=== PATIENT | female | born 1980 | race Caucasian/White ===

== ENCOUNTER 2021-06-28 09:27 | Emergency (ER) | payer OTHER ==
[~2021-06-28] VITALS: Ht 170.2 cm; Wt 74.0 kg
[2021-06-28 09:27] VITALS: BP 152/94
--- NOTE | 2021-06-28 09:52 | PHYS DOC ---
Adult General Chief Complaint Chief Complaint: ANKLE PROBLEM HPI HPI Patient is a 40-year-old female presenting for left ankle injury. Reports injury onset was yesterday evening when she was walking the dog. She states she was walking and suffered an inversion type left ankle sprain. She appropriately provided supportive care that included compression, elevation, icing and she took x2 extra strength Tylenol yesterday with improvement in pain. Ongoing symptoms and inability to fully bear weight's concern patient prompting her to come in for evaluation. She otherwise has no concerning medical issues, takes no medications on a daily basis Review of Systems Review of Systems Fourteen body systems of review of systems have been reviewed. See HPI for pertinent positives and negative responses, other simpson all other systems are negative, non-pertinent or non-contributory Allergies Allergies Allergies Coded Allergies Type Severity Reaction Last Updated Verified Penicillins Allergy Unknown 06/28/21 Yes Physical Exam Physical Exam Constitutional: Well developed, well nourished, no acute distress, non-toxic appearance. HENT: Normocephalic, atraumatic, bilateral external ears normal, oropharynx moist, no oral exudates, nose normal. Eyes: PERRLA, EOMI, conjunctiva normal, no discharge. Neck: Normal range of motion, no tenderness, supple, no stridor. Cardiovascular: Heart rate regular per monitor Lungs & Thorax: No respiratory distress or accessory muscle use, bilateral chest rise Abdomen: Abdomen soft, non-tender, bowel sounds present in all quadrants, no guarding or rebound, nonacute abdomen. Skin: Warm, dry, no erythema, no rash. Back: No tenderness, no CVA tenderness. Extremities: No cyanosis, no clubbing, ROM intact, patient presents with compressed Jung wrap to left ankle. She has focal pain to palpation over left lateral malleolus and over ATF ligaments. Comprehensive formal examination of left foot, ankle, tatum/lower leg and left knee unremarkable Neurologic: Alert and oriented X 3, grossly normal motor & sensory function, no focal deficits noted. Psychologic: Affect normal, judgement normal, mood normal. Current Patient Data Vital Signs Vital Signs Date Time Temp Pulse Resp B/P (MAP) Pulse Ox O2 Delivery O2 Flow Rate FiO2 06/28/21 09:27 104 16 152/94 (113) 97 Room Air Vital Signs Date Time Temp Pulse Resp B/P (MAP) Pulse Ox O2 Delivery O2 Flow Rate FiO2 06/28/21 09:27 104 152/94 (113) 97 06/28/21 09:27 16 Room Air EKG EKG [] Radiology/Procedures Radiology/Procedures INDICATION: Reason: inversion injury, lateral mal pain / Spl. Instructions: / History: COMPARISON: None. IMPRESSION: Left ankle: 3 views obtained. No evidence of dislocation. Nondisplaced acute appearing medial malleolus fracture with overlying soft tissue swelling. Joint effusion is identified within the tibiotalar joint. Electronically signed by: Lennox De Paz MD (06/28/2021 10:12 AM) DESKTOP- [id number] Heart Score C/O Chest Pain: No Risk Factors: Risk Factors: DM, Current or recent (<one month) smoker, HTN, HLP, family history of CAD, obesity. Risk Scores: Risk Factors: DM, Current or recent (<one month) smoker, HTN, HLP, family history of CAD, obesity. Course & Med Decision Making Course & Med Decision Making ABCs unremarkable HPI physical exam and comprehensive ER work-up nonconcerning for any emergent or surgical issues I disclosed radiographic findings concerning for small distal fibular fracture. No immediate indication for further diagnostic work-up or emergent orthopedic consultation for surgical intervention Splint applied and reevaluated by myself to be in satisfactory position with intact motor or sensory neuro function. Pain control given after extensive risk benefits of excepting narcotic pain medications had with patient and spouse at bedside Close outpatient PCP and employment training specialist advised with resources given. Strict return precautions were discussed with good understanding by patient and at bedside, all questions and concerns addressed prior to ER departure Dragon Disclaimer Dragon Disclaimer This electronic medical record was generated, in whole or in part, using a voice recognition dictation system. Departure Departure: Impression: Primary Impression: Closed fibular fracture Disposition: HOME / SELF CARE / HOMELESS Condition: STABLE Referrals: PCP,NO (PCP) Additional Instructions: You were seen for a fracture or broken bone. We spoke with the orthopedic doctors who need to see you in the orthopedic clinic. I want you to see Dr. Go Jeffrey who is a foot and ankle doctor. Please contact him first thing on Tuesday at [phone]. His office is located at [facility] [address], [address] [place] [address] in the same building you were seen for in the ER. If you were provided a splint use this as directed. You should not use the affected body part until you follow up with orthopedics. Keep the area clean, dry, and avoid getting it wet. You should use ice, NSAIDs and/or Tylenol for pain, and elevation to help with swelling and pain. Return to the ED if you develop worsening pain, numbness, tingling, weakness, fever, redness, or any other new or concerning symptoms. Scripts Crutch (CRUTCH) 1 Each Each PAIR MC UD for ankle fracture, #1 DISPENSE: 1 PAIR OF CRUTCHES. PATIENT TO USE INSTRUCTED BY PROVIDER. Prov: NICOLAS LARSEN DO 06/28/21 NICOLAS LARSEN DO Jun 28, 2021 09:52
--- NOTE | 2021-06-28 10:15 | RAD ---
INDICATION: Reason: inversion injury, lateral mal pain / Spl. Instructions: / History: COMPARISON: None. IMPRESSION: Left ankle: 3 views obtained. No evidence of dislocation. Nondisplaced acute appearing medial malleol us fracture with overlying soft tissue swelling. Joint effusion is identified within the tibiotalar j oint. Electronically signed by: Lennox De Paz MD (06/28/2021 10:12 AM) [id number]
[2021-06-28] MEDS ORDERED: CRUT1EAC3 MC (10:42)
== END 2021-06-28 10:42 | disposition home or self-care (01) ==
LOC: ER 09:27
DX: S82.832A Other fracture of upper and lower end of left fibula, initial encounter for closed fracture (principal); Z88.0 Allergy status to penicillin; X50.9XXA Other and unspecified overexertion or strenuous movements or postures, initial encounter; Y93.K1 Activity, walking an animal; Y92.89 Other specified places as the place of occurrence of the external cause; Y99.8 Other external cause status
CPT/HCPCS: 29515; 73610; 99283

== ENCOUNTER 2021-11-11 21:30 | Emergency (ER) | payer OTHER ==
[~2021-11-11] VITALS: Ht 170.2 cm; Wt 74.0 kg
[~2021-11-11 21:30] MED LIST: CRUT1EAC3 MC
--- NOTE | 2021-11-11 22:11 | PHYS DOC ---
Past History Past Surgical History: No Surgical History Alcohol Use: Rarely General Adult EDM: Chief Complaint: BACK INJURY HPI: HPI: ".. I am having a lot of back pain.... I have had back pain before but this is worse than usual.... It seems to run cleared behind my left leg.... I do not think it is anything there really injured..... I have seen a chiropractor in the past and that has helped.... But tonight it is not let me sleep..." Patient is a 41 year old female who presents with above hx and complaints lumbar sacral pain and sciatica on the left. Straight leg lift exacerbates the pain on the left. Patient denies any trauma or history of improper lifting. Patient has had sciatica complaints last few years. Patient denies any problems with urination or defecation. Patient denies any history of IV drug use. Patient denies any history of immunosuppression. Patient denies any history of cancer. Pain is most present and the paralumbar area obvious spasm and sciatic nerve is tender to palpation clear into the gluteal muscle. No recent travel. No specific ill contacts. Up-to-date with vaccinations. dependent. Review of Systems: Review of Systems: Constitutional: Denies fever or chills Eyes: Denies change in visual acuity HENT: Denies nasal congestion or sore throat Respiratory: Denies cough or shortness of breath Cardiovascular: Denies chest pain or edema GI: Denies abdominal pain, nausea, vomiting, bloody stools or diarrhea : Denies dysuria Musculoskeletal: Complains of back pain and sciatica Integument: Denies rash Neurologic: Denies headache, focal weakness or sensory changes Endocrine: Denies polyuria or polydipsia Lymphatic: Denies swollen glands Psychiatric: Denies depression or anxiety Family History: Family History: Noncontributory to presentation Current Medications: Current Meds: See nursing for home meds Allergies: Allergies: Allergies Coded Allergies Type Severity Reaction Last Updated Verified Penicillins Allergy Unknown 06/28/21 Yes Physical Exam: PE: Constitutional: Moderate acute distress, non-toxic appearance. [] HENT: Normocephalic, atraumatic, bilateral external ears normal, oropharynx moist, no oral exudates, nose normal. [] Eyes: PERRLA, EOMI, conjunctiva normal, no discharge. [] Neck: Normal range of motion, no tenderness, supple, no stridor. [] Cardiovascular:Heart rate regular rhythm, no murmur [] Lungs & Thorax: Bilateral breath sounds "apex auscultation [] Abdomen: Bowel sounds normal, soft, no tenderness, no masses, no pulsatile masses. [Mild obesity Skin: Warm, dry, no erythema, no rash. [] Back: Lumbar sacral muscle tenderness, no midline tenderness, no CVA tenderness. [] Tenderness of sciatic nerve as it runs into the hip Extremities: No tenderness, no cyanosis, no clubbing, ROM intact, no edema. Except tenderness along sciatic nerve. No cording appreciated. Neurologic: Alert and oriented X 3, normal motor function, normal sensory function, no focal deficits noted. [] Psychologic: Affect anxious, judgement normal, mood normal. [] EKG: EKG: [] Radiology/Procedures: Radiology/Procedures: [][place] [address] IMAGING REPORT Signed PATIENT: MICHELLE AMESACCOUNT: [id number] : 1980 LOCATION: ER AGE: 41 SEX: F EXAM STATUS: REG ER ORD. PHYSICIAN: JASON OSWALD MD REASON: Severe lower back pain PROCEDURE: CT LUMBAR SPINE WO CONTRAST CT LUMBAR SPINE WO History: Severe lower back pain. Technique: Noncontrast CT was performed of the lumbar spine. Multiplanar reconstructions were performed. Comparison: None Findings: Normal vertebral body height and alignment. No fracture. The intervertebral disc heights are relatively well-maintained. There are multilevel mild degenerative disc bulges L2-L3 through L5-S1. No significant canal or foraminal stenoses. No significant degenerative facet disease. Limited intra-abdominal contents are unremarkable. Impression: 1. Mild multilevel degenerative disc disease in the lumbar spine. No acute findings. If there is concern for radiculopathy, recommend MRI lumbar spine for further evaluation. Exposure: One or more of the following individualized dose reduction techniques were utilized for this examination: 1. Automated exposure control 2. Adjustment of the mA and/or kV according to patient size 3. Use of iterative reconstruction technique. Electronically signed by: Gene Huff MD (11/12/2021 12:29 AM) [facility] DICTATED AND SIGNED BY: GENE HUFF MD DATE: 11/12/2124 CC: JASON OSWALD MD; PCP,UNKNOWN ~ [address] [place] [id number] IMAGING REPORT Signed PATIENT: MICHELLE AMESACCOUNT: [id number] : 1980 LOCATION: ER AGE: 41 SEX: F EXAM STATUS: REG ER ORD. PHYSICIAN: JASON OSWALD MD REASON: Severe lower back pain PROCEDURE: CT LUMBAR SPINE WO CONTRAST CT LUMBAR SPINE WO History: Severe lower back pain. Technique: Noncontrast CT was performed of the lumbar spine. Multiplanar reconstructions were performed. Comparison: None Findings: Normal vertebral body height and alignment. No fracture. The intervertebral disc heights are relatively well-maintained. There are multilevel mild degenerative disc bulges L2-L3 through L5-S1. No significant canal or foraminal stenoses. No significant degenerative facet disease. Limited intra-abdominal contents are unremarkable. Impression: 1. Mild multilevel degenerative disc disease in the lumbar spine. No acute findings. If there is concern for radiculopathy, recommend MRI lumbar spine for further evaluation. Exposure: One or more of the following individualized dose reduction techniques were utilized for this examination: 1. Automated exposure control 2. Adjustment of the mA and/or kV according to patient size 3. Use of iterative reconstruction technique. Electronically signed by: Gene Huff MD (11/12/2021 12:29 AM) [facility] DICTATED AND SIGNED BY: GENE HUFF MD DATE: 11/12/2124 CC: JASON OSWALD MD; PCP,UNKNOWN ~ Heart Score: C/O Chest Pain: N/A Risk Factors: Risk Factors: DM, Current or recent (<one month) smoker, HTN, HLP, family history of CAD, obesity. Risk Scores: Score 0 - 3: 2.5% MACE over next 6 weeks - Discharge Home Score 4 - 6: 20.3% MACE over next 6 weeks - Admit for Clinical Observation Score 7 - 10: 72.7% MACE over next 6 weeks - Early Invasive Strategies Course & Med Decision Making: Course & Med Decision Making Pertinent Labs and Imaging studies reviewed. (See chart for details) Patient use ice packs as needed. Passive range of motion. No ballistic exercise. No heavy lifting. Continue physical therapy. Take Tylenol and ibuprofen for discomfort. May take Flexeril 10 mg up to 3 times a day for muscle spasms. Patient declines narcotic meds. Patient was given a shot of Toradol, Norflex and Depo-Medrol. Patient reports marked relief of pain and requesting discharge. Follow-up with neurosurgery if persistent may need MRI to fully evaluate lumbar sacral narrowing or nerve impingement. Return if any concerns Impression: 1. DJD-multiple level lumbar sacral area [] Dragon Disclaimer: Dragon Disclaimer: This electronic medical record was generated, in whole or in part, using a voice recognition dictation system. Departure Departure: Referrals: PCP,NO (PCP) Scripts Cyclobenzaprine Hcl (CYCLOBENZAPRINE HCL) 10 Mg Tablet 10 MG PO TID PRN for muscle spasm, #30 TAB Prov: JASON OSWALD MD 11/12/21 Dragpamela Disclaimer This chart was dictated in whole or in part using Voice Recognition software in a busy, high-work load, and often noisy Emergency Department environment. It may contain unintended and wholly unrecognized errors or omissions. Dragon Disclaimer This chart was dictated in whole or in part using Voice Recognition software in a busy, high-work load, and often noisy Emergency Department environment. It may contain unintended and wholly unrecognized errors or omissions. JASON OSWALD MD Nov 11, 2021 22:11
[2021-11-11 22:21] VITALS: BP 127/101
[2021-11-11] MEDS ORDERED: KETOROLAC 60 MG/2 ML VIAL. IM ONE (23:15)
[2021-11-11] MEDS ORDERED: oxyCODONE/APAP 5/325 1 TAB TABLET PO ONE (23:15)
[2021-11-11] MEDS ORDERED: ORPHENADRINE CITRATE 60 MG/2 ML VIAL. IM ONE (23:15)
[2021-11-11] MEDS ORDERED: methylPREDNISolone ACETATE 40 MG/ML VIAL. IM ONE (23:45)
--- NOTE | 2021-11-12 00:31 | RAD ---
CT LUMBAR SPINE WO History: Severe lower back pain. Technique: Noncontrast CT was performed of the lumbar spine. Multiplanar reconstructions were perform ed. Comparison: None Findings: Normal vertebral body height and alignment. No fracture. The intervertebral disc heights are relative ly well-maintained. There are multilevel mild degenerative disc bulges L2-L3 through L5-S1. No signif icant canal or foraminal stenoses. No significant degenerative facet disease. Limited intra-abdominal contents are unremarkable. Impression: 1. Mild multilevel degenerative disc disease in the lumbar spine. No acute findings. If there is con cern for radiculopathy, recommend MRI lumbar spine for further evaluation. Exposure: One or more of the following individualized dose reduction techniques were utilized for thi s examination: 1. Automated exposure control 2. Adjustment of the mA and/or kV according to patient size 3. Use of iterative reconstruction technique. Electronically signed by: Gene Huff MD (11/12/2021 12:29 AM) [facility]
[2021-11-12] MEDS ORDERED: CYCL10TA19 PO (00:45)
[2021-11-12 01:23] LABS: BACTERIA,URINE FEW /HPF (0-FEW); CLARITY,URINE CLEAR; COLOR,URINE YELLOW; GLUCOSE,URINE NEG (NEG); NITRITE,URINE NEG (NEG); SQUAMOUS EPITHELIAL CELL,UR MANY /LPF; UROBILINOGEN,URINE 0.2 mg/dL (0.2 mg/dL)
== END 2021-11-12 00:53 | disposition home or self-care (01) ==
LOC: ER 21:30
DX: M47.817 Spondylosis without myelopathy or radiculopathy, lumbosacral region (principal); M54.42 Lumbago with sciatica, left side; Z88.0 Allergy status to penicillin
CPT/HCPCS: 72131; 81001; 81025; 96372; 99284; J1030; J1885; J2360